=== PATIENT | male | born 1945 | race Two or more races ===

== ENCOUNTER 2018-08-11 18:34 | Inpatient (IN) ==
[2018-08-12] MEDS ORDERED: Bisacodyl 10 MG Supp RECTAL PRN (00:48)
[2018-08-12] MEDS ORDERED: Dextrose 50% in Water 50 ML Vial IV.PUSH PRN (00:50)
[2018-08-12] MEDS: Sod Chloride 0.9% Inj 1,000 ML IV.CONT SCH ×2 (01:42→19:29)
[2018-08-12 03:26] LABS: INR 1.2 Ratio; Prothrombin Time 12.3 sec (9.8-11.6)
--- NOTE | 2018-08-12 04:50 | P.HPIM ---
History of Present Illness Primary Care Physician: UNKNOWN History of Present Illness: 73-year-old male history of diabetes, hypertension. Austrian-speaking. Patient offered over the phone sign language interpreter and opts to use son at bedside. Patient presents to the ER with a 3-week history of progressively worsening dyspnea on exertion, fatigue, bilateral intermittent flank pain worse with movement as well as deep breathing. Slight amount of hemoptysis with specks of blood in cough productive of white sputum. Also reports 8 pound weight loss over the past 2 months and feeling cold without any fevers. Also reports constipation which has resolved. Review of Systems All other systems reviewed negative except as stated in HPI PMFSH - History History Provided By: Family Member - Medical History Medical History: Medical History (Last Updated 08/11/18 @ 19:07 by May Oro) Diabetes Glaucoma Hypertension - Surgical History Surgical History: Surgical History (Last Updated 08/11/18 @ 19:07 by May Oro) No history of previous surgery - Family History Family History: Family History (Last Updated 08/12/18 @ 04:47 by Alan Watkins MD) Mother Diabetes - Tobacco History Second Hand Smoke Exposure: No Tobacco Use In Past 30 Days: No Smoking Status: Former smoker Tobacco Type: Cigarettes - Alcohol History How Often Do You Have a Drink Containing Alcohol: Never - Substance Use History Substance History: No History of Abuse - Travel History Recent Travel in the [place] Within the Last 8 Weeks: No Recent Travel Out of the Country Within the Last 8 Weeks: No Medications and Allergies Active Medications: Active Medications Al Hydroxide/Mg Hydroxide (Milk Of Magnesia Liq) 30 ml PO Q12H PRN PRN Reason: Mild Constipation Bisacodyl (Dulcolax Supp) 10 mg RECTAL DAILY PRN PRN Reason: SEVERE CONSITIPATION Dextrose (D50w Vial) 50 ml IV.PUSH UNSCH PRN PRN Reason: PER HYPOGLYCEMIA PROTOCOL Glucagon (Glucagon Inj) 1 mg OTHER PRN PRN PRN Reason: for Hypoglycemia Protocol Sodium Chloride (Ns Inj) 1,000 mls @ 65 mls/hr IV.CONT .[id number] DOMENIC Last Admin: 08/12/18 01:42 Dose: 65 mls/hr Insulin Aspart (Novolog Insulin Correctional Sugar Inj) 0 unit SQ ACHS DOMENIC; Protocol Lactulose (Lactulose Liq) 30 ml PO DAILY PRN PRN Reason: SEVERE CONSITIPATION Sennosides (Senokot) 17.2 mg PO Q12H PRN PRN Reason: Moderate Constipation Allergies Allergy/AdvReac Type Severity Reaction Status Date / Time No Known Allergies Allergy Verified 08/11/18 18:52 Home Medications Medication Instructions Recorded Confirmed Type glipizide [Glucotrol] 5 mg PO BID 08/11/18 08/12/18 History lisinopril 2.5 mg PO DAILY 08/11/18 08/12/18 History Azopt 1 drop EACH EYE BID 08/12/18 08/12/18 History Lumigan 1 drop EACH EYE HS 08/12/18 08/12/18 History Exam Vital signs: Vital Signs 08/12/18 03:32 08/12/18 04:00 Temperature 98.0 F 98.5 F Pulse Rate 75 75 Respiratory Rate 21 17 Blood Pressure 164/81 H 129/69 Pulse Oximetry 99 98 Intake & Output 08/11/18 08/11/18 08/12/18 06:59 18:59 06:59 Weight 65.317 kg Other: Date of Last Bowel Movement 08/11/18 Weight On Admission 144 kg Caprini VTE Risk Assessment Caprini VTE Risk Assessment: Moderate/High Risk (score >= 2) Caprini Risk Assessment Model: Point Value = 1 Point Value = 2 Point Value = 3 Point Value = 5 Age 41-60 Minor surgery BMI > 25 kg/m2 Swollen legs Varicose veins or History of unexplained or recurrent spontaneous Oral contraceptives or hormone replacement Sepsis (< 1 month) Serious lung disease, including pneumonia (< 1 month) Abnormal pulmonary function Acute myocardial infarction Congestive heart failure (< 1 month) History of inflammatory bowel disease Medical patient at bed rest Age 61-74 Arthroscopic surgery Major open surgery (> 45 min) Laparoscopic surgery (> 45 min) Malignancy Confined to bed (> 72 hours) Immobilizing plaster cast Central venous access Age >= 75 History of VTE Family history of VTE Factor V Leiden Prothrombin [id number] Lupus anticoagulant Anticardiolipin antibodies Elevated serum homocysteine Heparin-induced thrombocytopenia Other congenital or acquired thrombophilia Stroke (< 1 month) Elective arthroplasty Hip, pelvis, or leg fracture Acute spinal cord injury (< 1 month) Prophylaxis Regimen: Total Risk Factor Score Risk Level Prophylaxis Regimen 0-1 Low Early ambulation 2 Moderate Order ONE of the following: *Sequential Compression Device (SCD) *Heparin 5000 units SQ BID 3-4 Higher Order ONE of the following medications: *Heparin 5000 units SQ TID *Enoxaparin/Lovenox 40 mg SQ daily (WT < 150 kg, CrCl > 30 mL/min) *Enoxaparin/Lovenox 30 mg SQ daily (WT < 150 kg, CrCl > 10-29 mL/min) *Enoxaparin/Lovenox 30 mg SQ BID (WT < 150 kg, CrCl > 30 mL/min) AND/OR *Sequential Compression Device (SCD) 5 or more Highest Order ONE of the following medications: *Heparin 5000 units SQ TID (Preferred with Epidurals) *Enoxaparin/Lovenox 40 mg SQ daily (WT < 150 kg, CrCl > 30 mL/min) *Enoxaparin/Lovenox 30 mg SQ daily (WT < 150 kg, CrCl > 10-29 mL/min) *Enoxaparin/Lovenox 30 mg SQ BID (WT < 150 kg, CrCl > 30 mL/min) AND *Sequential Compression Device (SCD) Assessment and Plan - Plan //Lung mass //Suspected lung cancer //Pathologic fracture of T8 vertebral body, T5 vertebral body = CT pulmonary angiogram negative for pulmonary embolism, however does show 3.4 x 2.2 cm spiculated lung mass anterior to the left hilum, with mildly enlarged left hilar lymph nodes and widespread bony metastatic disease, including questionable liver metastatic disease = Have consulted interventional radiology for biopsy of lung mass versus bony metastasis. Will consult oncology as well. //Hyponatremia. Sodium 128. Likely secondary to dehydration and poor appetite versus possibly secondary to lung cancer. Normal saline IV fluids. Monitor //Hypercalcemia. Calcium 10.3. Mild. IV fluids. Monitor //Hypertension. Blood pressure acceptable. Continue to monitor. Hold off on home meds for now. //Diabetes mellitus. Will check A1c. Insulin sliding scale for now. Discussed Condition With: Patient, nurse, ED physician, son at bedside H&P: Quality - VTE Deep Vein Thrombosis/Pulmonary Embolism Present on Admission: No
[2018-08-12 06:52] LABS: Calcium 9.9 mg/dL (8.5-10.1); Carbon Dioxide 28.9 meq/L (21.0-32.0); Potassium 3.9 meq/L (3.5-5.1)
[2018-08-12] MEDS: Insulin NovoLOG Aspart Correctional Sugar Inj SQ SCH ×4 (09:46→22:49)
[2018-08-12] MEDS ORDERED: fentaNYL Citrate Inj 250 MCG/5 ML Ampul ONE (11:19)
--- NOTE | 2018-08-12 11:59 | P.RAD ---
Post Procedure Progress Note - Pre Procedure Diagnosis (1) Lung mass (2) Bone metastases - Post Procedure Diagnosis (1) Bone metastases (2) Lung mass - Procedure Information Procedure Date: 08/12/18 Supervising Radiologist: Neil Matos MD Estimated blood loss (mL): 0 Anesthesia: Local, Conscious Sedation - Plan of Activity Patient to Unit: [facility] Patient Condition: Good Additional Comments: Successful Ct guided biopsy of a distructive lesion in the t10 transverse process full dictated report to follow See PACS Report for procedural detail/treatment.
--- NOTE | 2018-08-12 15:53 | CT ---
EXAM DATE: 08/12/2018 12:20 PM EDT AGE/SEX: 73 years / Male INDICATIONS: T10 bone lesion. CLINICAL DATA: This is the patient's initial encounter. Patient reports that signs and symptoms have been present for 1 day and indicates a pain score of 4/10. MEDICAL/SURGICAL HISTORY: Diabetes. Hypertension. None. COMPARISON: No prior exams available for comparison. BIOPSY SITE: Right . T10 transverse process MEDICATION(S): 2mg midazolam (Versed) IV 100mcg fentanyl (Sublimaze) IV DEVICE(S): 18 gauge BARD biopsy needle Two core specimen(s) sent to the laboratory for pathologic evaluation. . . PROCEDURE: CT guided Right . T10 transverse process biopsy Conscious sedation with continuous EKG and oximetry monitoring. EKG and oximetry remained stable throughout the procedure. The patient's CT scan of the thorax was reviewed prior to the procedure. The patient's lung mass is a gain noted in addition, multiple destructive lesions are seen within the osseous structures. There wa s near complete destruction of the transverse process of T10 on the right. Decision was made to biops y this. Prior to the procedure informed consent was obtained. Any appropriate prior imaging studies were rev iewed. Using automated exposure control and adjustment of the mA and/or kV according to patient size, radiat ion dose was kept as low as reasonably achievable to obtain optimal diagnostic quality images. DICOM format image data is available electronically for review and comparison. The site was prepped in a sterile fashion. Full sterile technique was used, including cap, mask, shola rile gloves and gown and a large sterile sheet. Hand hygiene and 2% chlorhexidine and/or betadine/al cohol prep was utilized per protocol for cutaneous antisepsis. The skin and subcutaneous tissues wer e infiltrated with local anesthetic solution. With CT guidance the previously identified target was localized. Biopsy was performed using the presc ribed needle as above. Adequate hemostasis was obtained with compression at the puncture site. Follow-up CT scan reveals no hemorrhage. The patient tolerated the procedure well and there were no complications. The patient was returned to the Radiology Outpatient Unit in stable condition. FINDINGS: 2 core biopsies of the T10 transverse process were completed without difficulty. 18-gauge core sample s were obtained. CONCLUSION: 1. Uncomplicated CT guided biopsy. Electronically signed by: Neil Matos MD 08/12/2018 3:52 PM EDT
[2018-08-12 17:00] LABS: Hemoglobin A1c 6.6 % (4.3-6.0)
[2018-08-12] MEDS ORDERED: Pamidronate Inj 60 MG in Sodium Chlor 0.9% Inj 500 ML IV.SIG ONE (17:00)
--- NOTE | 2018-08-12 18:00 | MH ---
cc: Oni Simons MD DATE OF ADMISSION: 08/12/2018 REASON FOR CONSULTATION: Evaluation of newly diagnosed lung cancer. HISTORY OF PRESENT ILLNESS: A 73-year-old gentleman, Malay speaking; poor historian, difficulty in obtaining history, but I spoke to the patient's son over the phone, who told me that he has been having low back pain for the last 2 months and gradually increasing over the last 3-1/2 weeks and hence went to the emergency room and [facility] where he was evaluated with a CT scan of the chest that showed a lung mass and hence he was transported here and admitted through the emergency room. I was asked to evaluate him for possible newly diagnosed lung cancer. He has already had a CT-guided biopsy of the T10 vertebral body mass. The patient is unable to give any further history other than that. Denies any incontinence, urgency or frequency and complains of back pain, specifically in the upper back. His son told me that he lost about 5 or 10 pounds in the last 1-2 months. REVIEW OF SYSTEMS: No headaches, motor or sensory symptoms. No fevers, or night sweats. He has chronic cough with whitish sputum. No hemoptysis. No abdominal pain, distention, blood in stool or black stools. No frequency, urgency or hematuria. PAST MEDICAL HISTORY: Diabetes, hypertension and glaucoma. SURGICAL HISTORY: No prior surgeries. MEDICATIONS: He was on Milk of Magnesia, bisacodyl, insulin, lactulose in the hospital. FAMILY HISTORY: Noncontributory. SOCIAL HISTORY: Ex-smoker, non-alcohol abuser. WORK HISTORY: Not available. PHYSICAL EXAMINATION: GENERAL: Middle-aged gentleman, appearing older and chronically ill looking with evidence of recent weight loss. HEENT: Pallor present. No icterus. No palpable adenopathy in the neck or axilla. Dry mucous membranes without oropharyngeal lesions, no gum bleeding or hypertrophy. MUSCULOSKELETAL: Spinal tenderness noted in the mid to lower thoracic spine and a biopsy site also tender. Moving all 4 extremities. RECTAL: Deferred. NEUROLOGICAL: Alert and oriented x4. CARDIOVASCULAR: S1, S2, regular rate and rhythm. LUNGS: Bilaterally clear without crackles or wheeze. ABDOMEN: Soft, without palpable hepatosplenomegaly. No tenderness or guarding. No free fluid clinically. EXTREMITIES: No edema or evidence of DVTs. IMAGING: No CT scan is available in this hospital, but CT pulmonary angiogram At [facility] showed no pulmonary embolism and 3.4 cm x 2.2 cm spiculated lung mass anterior to the left hilum per report with mildly enlarged left hilar lymph nodes and widespread bony metastatic disease including questionable liver metastasis. This is per report from [facility] in the EMR here at [facility]. IMPRESSION: A 73-year-old gentleman with newly diagnosed lung cancer with spinal metastasis which he is symptomatic from. We need to rule out spinal cord compression and so I ordered an urgent MRI of the thoracic and lumbar spine and also started him on Aredia and pain medication. We also requested a radiation oncology consultation for palliative radiation to the spine and await the pathology from the T10 bone biopsy that was performed this afternoon in order to make decisions regarding systemic therapy. This was discussed with the patient's son over the phone, and I will followup in the hospital. Please do not hesitate to contact me if there are any further questions. MD ALISSA Srinivasan/huma , 04:59 PM , 05:09 PM
[2018-08-12] MEDS ORDERED: Gadobutrol PF 7.5 MMOL/7.5 ML Vial (for RAD) IV.SIG ONE ×2 (19:24→19:33)
--- NOTE | 2018-08-12 19:30 | MR ---
EXAM DATE: 08/12/2018 7:12 PM EDT AGE/SEX: 73 years / Male INDICATIONS: Pain. Metastatic disease. CLINICAL DATA: This is the patient's initial encounter. Patient reports that signs and symptoms have been present for 2 days and indicates a pain score of 3/10. MEDICAL/SURGICAL HISTORY: Diabetes mellitus type II. Hypertension. . Sinus. Vasectomy. COMPARISON: No prior exams available for comparison. TECHNIQUE: Multiplanar, multisequence MRI of the thoracic spine was performed without and with 7 ml Gadavist (gadobutrol) contrast as a single exam dose. FINDINGS: VERTEBRAE: Abnormal. Widespread diffuse abnormal signal and enhancement throughout the visualized th oracic spine as well as the visualized lower cervical and upper lumbar spine consistent with widespre ad diffuse osseous metastatic disease. Mild inferior endplate from T8 reflects a Schmorl's node. Ther e is complete replacement of T5 and T8 vertebral bodies with eccentric narrowing of the posterior T5 vertebral body on the right. This effaces the central canal anteriorly and deforms the cord. There is no definitive evidence for extension of tumor into the epidural space at this time. Otherwise, verte bral body heights are maintained. There is no disparate STIR signal to suggest pathologic fracture at this time. Abnormal signal enhancement is seen throughout the posterior elements most notably at T2 involving both lamina and a spinous process. There is involvement of the transverse processes and ped icles at multiple levels without definitive evidence for involvement of the neural foramina. There is also osseous metastatic disease involving multiple ribs central canal stenosis appears patent with n ormal cord signal. CONCLUSION: 1. Widespread diffuse osseous metastatic disease involving the thoracic spine with near complete rep lacement of T5 and T8 vertebral bodies and involvement of the posterior processes at numerous levels. 2. There is eccentric bulging of the right T5 posterior cortex with effacement of the anterior theca l sac and flattening of the thoracic cord at this level. 3. Otherwise, no pathologic fracture at this time. Electronically signed by: Miki Emery MD 08/12/2018 7:29 PM EDT
--- NOTE | 2018-08-12 19:44 | MR ---
EXAM DATE: 08/12/2018 7:23 PM EDT AGE/SEX: 73 years / Male INDICATIONS: Pain. Metastatic disease. CLINICAL DATA: This is the patient's initial encounter. Patient reports that signs and symptoms have been present for 2 days and indicates a pain score of 3/10. MEDICAL/SURGICAL HISTORY: Diabetes mellitus type II. Hypertension. . Sinus. Vasectomy. COMPARISON: No prior exams available for comparison. TECHNIQUE: Multiplanar, multisequence MRI examination of the lumbar spine was performed without and with 7 ml Gadavist (gadobutrol) contrast as a single exam dose. FINDINGS: Diffusely abnormal signal throughout the lumbar spine with associated diffuse abnormal enhancement co nsistent with diffuse osseous metastatic disease. There is near complete replacement of the L2 and L5 vertebral bodies. There is posterior process involvement at multiple levels as well as involvement t hroughout the sacrum. There is no disparate STIR signal to suggest pathologic fracture. There is para spinal extension of tumor on the left at L3 which does not appear to extend to the neural foramen. Th ere is paraspinal extension of tumor on the left at L5 extending from the pedicle to the neural heath cabrera with abnormal enhancement noted in the neural foramina. Is also abnormal enhancement of the exiti ng left L5 nerve root. Otherwise, no definitive evidence for epidural tumor extension. There is brianda l cord signal with conus terminating at T12-L1. Central canal is patent. Multilevel degenerative spon dylosis of the lower lumbar spine with mild diffuse disc bulges at L3-4, L4-5 and L5-S1. No significa nt resultant neural foraminal or central canal stenosis. CONCLUSION: 1. Findings consistent with diffuse osseous metastatic disease throughout the lumbar spine with invo lvement of the posterior processes at multiple levels. 2. There is paraspinal extension of tumor on the left at L5 which appears to extend to the neural fo ramina with abnormal enhancement of the left L5 nerve root. 3. Otherwise, no evidence for pathologic fracture or epidural tumor extension. Electronically signed by: Miki Emery MD 08/12/2018 7:43 PM EDT
[2018-08-12 20:14] LABS: Calcium 10.4 mg/dL (8.5-10.1)
[2018-08-12 20:20] LABS: Albumin 3.5 g/dL (3.4-5.0)
[2018-08-12 20:22] LABS: Total Protein 7.5 g/dL (6.4-8.2)
--- NOTE | 2018-08-12 22:26 | MB ---
cc: eCsia Huertas MD DATE: 08/12/2018 REASON FOR CONSULTATION: Lung nodule. HISTORY OF PRESENT ILLNESS: This is a 73-year-old male who has a history of diabetes, hypertension and a history of chronic lung disease, who was admitted with shortness of breath, fatigue and pain on taking deep breaths. The patient also had mild hemoptysis and has had significant weight loss over the past 2 months. Upon arrival in the ER, a CT of the chest was obtained. The CTA done on 08/11/2018 was reported as having a 3.4 cm spiculated lung mass in the left hilar area with enlarged left hilar lymph nodes, widespread bony metastatic disease and a pathologic fracture of the T8 vertebral body. There was no pulmonary embolus. There were coronary artery calcifications noted. The patient was then sent for a bone biopsy of the spine, which he has completed. He is presently having some pain on taking deep breaths and some back pain as well. His hemoptysis has subsided. PAST MEDICAL HISTORY: Includes a history of diabetes and hypertension, history of glaucoma. PAST SURGICAL HISTORY: No previous surgery. HABITS: The patient is a smoker if up to 1 pack per day for over 40 years. Alcohol use, occasional. ALLERGIES: NO DRUG ALLERGIES ARE LISTED. FAMILY HISTORY: Significant for diabetes in his mother. REVIEW OF SYSTEMS: The patient is hard to communicate with. He does have some shortness of breath, pain in the back. He has no leg swelling or calf muscle pain. No urinary or GI symptoms. Denies headaches or blackout spells. Denies skin rash. PHYSICAL EXAMINATION: GENERAL: This is an elderly man who is alert, pale, in no acute distress. VITAL SIGNS: Blood pressure 130/70, pulse 70, respirations 16, temperature 97.8. HEENT: Head is normocephalic. Pupils are reactive. Tongue is moist. Nasal mucosa edematous. Throat is clear. NECK: Supple with no bruits, thyroid enlargement or lymphadenopathy. CHEST: Decreased breath sounds at the bases with occasional wheezes bilaterally and prolonged expirations. HEART: Irregular S1 and S2 with no murmur and no S3. ABDOMEN: Soft, protuberant without masses. No organomegaly or tenderness. Bowel sounds are active. EXTREMITIES: No lesions. No calf tenderness. NEUROLOGIC: Reflexes are 1+ with no gross motor deficits. SKIN: No lesions observed. IMPRESSION: 1. Left lung mass, probable malignancy. 2. Metastatic bony lesion, possible metastatic carcinoma of the lung. 3. Chronic obstructive pulmonary disease. 4. Diabetes mellitus. 5. Hypertension. PLAN: The patient had a bone biopsy done, the results of which are pending. We will place him on DuoNeb solution with a nebulizer q.i.d. We will get him scheduled for a bronchoscopy to evaluate the left hilar region. Bone biopsy results are pending and the patient will submit a sputum for culture and Gram stain. I also placed him on Zithromax 500 mg daily to treat any underlying bronchitis. A PFT will be done at the bedside and a blood gas study on room air and oxygen supplementation added at 2 liters nasal cannula if he is hypoxic. Thank you, Dr. Watkins for this consultation. V. Dhaval Huertas MD VJD/mik , 08:16 PM , 08:28 PM
--- NOTE | 2018-08-13 07:47 | P.DCO ---
- Diagnosis (1) Lung mass Status: Acute (2) Bone metastases Status: Acute - Physical Therapy Order: Evaluate and treat, Improve ambulation, Strength and gait training - Home Health Nursing Order: Medical education, Signs/symptoms of disease process, Nursing assessment with vital signs - Case Management Consult Yes - Certification I have seen patient Rakesh Kim on 08/13/18. My clinical findings support the need for the requested home health care services because: Limited mobility due to disease progression, Deconditioned with increased weakness, Limited ability to care for self, High risk of falls I certify that my clinical findings support that this patient is homebound because: Unsteady gait/balance, Unsafe to leave home unassisted, Unable to use public transportation
--- NOTE | 2018-08-13 08:15 | P.PN ---
Subjective Interval history: Follow-up for lung cancer with bony metastasis. The patient is seen with his son at bedside who provided translation per the request of the patient. Patient reports his breathing has improved, denies any significant shortness of breath, does have an occasional nonproductive cough, denies hemoptysis. Denies any chest pain. He reports a lot of pain around his lower back and left hip, requesting pain medication. He states he has had difficulty ambulating due to this pain. He did eat well last night. Denies any other medical complaints at this time. Physical Exam Vital signs: Vital Signs 08/12/18 08:15 08/12/18 12:15 08/12/18 12:30 Temperature 98.0 F 98.5 F Pulse Rate 81 75 72 Respiratory Rate 16 18 18 Blood Pressure 148/79 H 107/62 110/60 Pulse Oximetry 97 08/12/18 13:20 08/12/18 15:58 08/12/18 20:43 Temperature 98.2 F 98.5 F Pulse Rate 68 86 91 H Respiratory Rate 20 16 18 Blood Pressure 121/70 136/67 131/74 Pulse Oximetry 93 L 97 97 08/12/18 23:34 08/13/18 01:04 08/13/18 04:00 Temperature 98.1 F 97.6 F Pulse Rate 84 78 82 Respiratory Rate 18 20 18 Blood Pressure 131/71 126/71 Pulse Oximetry 96 97 97 08/13/18 07:41 Temperature Pulse Rate 84 Respiratory Rate 17 Blood Pressure Pulse Oximetry 97 Intake & Output 08/12/18 08/13/18 08/13/18 18:59 06:59 18:59 Intake Total 520 / 520 Balance 520 / 520 Intake: IV 520 / 520 NS Inj 1,000 ML @ 65 mls/hr IV. 0 / 0 CONT .[id number] [facility] Rx#:[id number] Aredia Inj 60 MG In NS Inj 500 520 / 520 ML @ 130 mls/hr IV.SIG ONCE ONE Rx#:[id number] Other: Date of Last Bowel Movement 08/11/18 Narrative: GENERAL: Well-nourished, well-developed elderly male patient in [facility]. SKIN: Warm and dry. No rash. HEENT: Normocephalic. Atraumatic. Pupils equal and round. Mucous membranes pink and moist. CARDIOVASCULAR: Regular rate and rhythm. No murmur appreciated. RESPIRATORY: No accessory muscle use. Clear to auscultation. Breath sounds equal bilaterally. GASTROINTESTINAL: Abdomen soft, non-tender, nondistended. Normoactive bowel sounds x4. MUSCULOSKELETAL: No obvious deformities. Extremities without clubbing, cyanosis , or edema. Tender to palpation at left lateral hip and left lumbar spine. NEUROLOGICAL: Awake and alert. No obvious cranial nerve deficits. Motor grossly within normal limits. Moving all extremities spontaneously. Normal speech. PSYCHIATRIC: Appropriate mood and affect; insight and judgment normal. Results - Labs CBC & Chem 7: 08/12/18 05:45 Laboratory Results - last 24 hr 08/12/18 08/12/18 08/12/18 05:45 08:28 17:31 POC Glucose 143 H Hemoglobin A1c 6.6 H Calcium 10.4 H Total Bilirubin 0.6 Direct Bilirubin 0.2 Indirect Bilirubin 0.4 AST 38 H ALT 18 Alkaline Phosphatase 141 H Total Protein 7.5 Albumin 3.5 08/12/18 08/12/18 08/13/18 18:02 21:55 07:49 POC Glucose 220 H 188 H 130 H Hemoglobin A1c Calcium Total Bilirubin Direct Bilirubin Indirect Bilirubin AST ALT Alkaline Phosphatase Total Protein Albumin - Imaging Impressions Bone Biopsy CT 08/12/18 00:00 CONCLUSION: 1. Uncomplicated CT guided biopsy. Thoracic Spine MRI 08/12/18 00:00 CONCLUSION: 1. Widespread diffuse osseous metastatic disease involving the thoracic spine with near complete replacement of T5 and T8 vertebral bodies and involvement of the posterior processes at numerous levels. 2. There is eccentric bulging of the right T5 posterior cortex with effacement of the anterior thecal sac and flattening of the thoracic cord at this level. 3. Otherwise, no pathologic fracture at this time. Lumbar Spine MRI 08/12/18 16:43 CONCLUSION: 1. Findings consistent with diffuse osseous metastatic disease throughout the lumbar spine with involvement of the posterior processes at multiple levels. 2. There is paraspinal extension of tumor on the left at L5 which appears to extend to the neural foramina with abnormal enhancement of the left L5 nerve root. 3. Otherwise, no evidence for pathologic fracture or epidural tumor extension. - Procedures 08/12/18 - Ct guided biopsy of a destructive lesion in the t10 transverse process by CARMELINA Matos Assessment and Plan - Assessment (1) Lung mass Code(s): R91.8 - Other nonspecific abnormal finding of lung field Status: Acute (2) Bone metastases Code(s): C79.51 - Secondary malignant neoplasm of bone Status: Acute - Plan 73-year-old male with history of hypertension, diabetes mellitus, presented to [facility] ED with low back pain, rib pain, shortness of breath, and occasional hemoptysis. Lung mass with bony spinal metastasis: Acute, found during this admission. Suspect lung cancer. -CT pulmonary angiogram negative for PE, however does show 3.4 x 2.2 cm spiculated lung mass anterior to the left hilum, with mildly enlarged left hilar lymph nodes and widespread bony metastatic disease, including questionable liver metastatic disease -Thoracic spine MRI shows Widespread diffuse osseous metastatic disease involving the thoracic spine with near complete replacement of T5 and T8 vertebral bodies and involvement of the posterior processes at numerous levels; There is eccentric bulging of the right T5 posterior cortex with effacement of the anterior thecal sac and flattening of the thoracic cord at this level. -Lumbar spine MRI shows Findings consistent with diffuse osseous metastatic disease throughout the lumbar spine with involvement of the posterior processes at multiple levels; There is paraspinal extension of tumor on the left at L5 which appears to extend to the neural foramina with abnormal enhancement of the left L5 nerve root. -IR consulted 08/12 s/p CT guided biopsy of a destructive lesion in the t10 transverse process -Pathology pending -Consult oncology and radiation oncology, appreciate assistance -Consult pulmonology, appreciate assistance -Pain control with tylenol, [place] prn, and IV morphine prn breakthrough pain -Consult PT, recommending HHC, case management consulted Hyponatremia: acute. Sodium 128. Likely secondary to dehydration and poor appetite versus possibly secondary to lung cancer. -Continue Normal saline IV fluids. -Monitor, repeat labs pending Hypercalcemia: Calcium 10.3. Mild. -Continue IV fluids. -Monitor, repeat labs pending Hypertension: chronic. Blood pressure acceptable. -Continue to monitor. -Hold off on home meds for now. Diabetes mellitus: chronic. HgbA1c 6.6 -Monitor Accu-checks and cover with SSI DVT Prophylaxis: teds/SCDs; avoid chemical prophylaxis with biopsy Discharge Planning: Await radiation oncology recommendations. Will need clearance from oncology. PT recommending [facility] and ricky, case management consulted.
[2018-08-13] MEDS ORDERED: Acetaminophen 325 MG Tablet PO PRN (08:16)
[2018-08-13] MEDS ORDERED: Morphine Sulfate Inj 2 MG/ML Vial IV.PUSH PRN (08:17)
[2018-08-13] MEDS ORDERED: Morphine Sulfate Inj 2 MG/ML Vial IV.PUSH ONE (08:30)
[2018-08-13 09:14] LABS: Baso % (Auto) 0.4 % (0.0-2.0); Eos # (Auto) 0.1 th/mm3 (0.0-0.4); Hematocrit 34.8 % (39.0-51.0); Hemoglobin 12.1 gm/dL (13.0-17.0); Lymph # (Auto) 0.8 th/mm3 (1.0-4.8); Lymph % (Auto) 13.7 % (9.0-44.0); Mean Corpuscular HGB Conc 34.9 % (32.0-36.0); Mean Corpuscular Hemoglobin 31.9 pg (27.0-34.0); Mean Corpuscular Volume 91.6 fL (80.0-100.0); Mean Platelet Volume 7.2 fL (7.0-11.0); Mono # (Auto) 0.4 th/mm3 (0.0-0.9); Mono % (Auto) 7.8 % (0.0-8.0); Neut # (Auto) 4.4 th/mm3 (1.8-7.7); Neut % (Auto) 77.1 % (16.0-70.0); Platelet Count 187 th/mm3 (150-450); Red Cell Distribution Width 13.6 % (11.6-17.2); White Blood Count 5.7 th/mm3 (4.0-11.0)
[2018-08-13 09:31] LABS: Albumin 3.2 g/dL (3.4-5.0); Anion Gap 7 meq/L (5-15); Aspartate Aminotransferase 27 U/L (15-37); Blood Urea Nitrogen 19 mg/dL (7-18); Calcium 10.3 mg/dL (8.5-10.1); Carbon Dioxide 27.1 meq/L (21.0-32.0); Chloride 99 meq/L (98-107); Glomerular Filtration Rate 58 mL/min (>89); Glucose,Random 140 mg/dL (74-106); Sodium 133 meq/L (136-145)
[2018-08-13 09:32] LABS: Alanine Aminotransferase 14 U/L (12-78)
[2018-08-13 09:35] LABS: Alkaline Phosphatase 121 U/L (45-117); Total Protein 6.7 g/dL (6.4-8.2)
[2018-08-13] MEDS: Insulin NovoLOG Aspart Correctional Sugar Inj SQ SCH ×4 (11:07→22:29)
[2018-08-13] MEDS ORDERED: RESP: Albuterol Concentrated 2.5 MG/0.5 ML Neb NEB SCH (11:15)
--- NOTE | 2018-08-13 11:21 | P.PN ---
Subjective Interval history: He has pain in the lower back. No hemoptysis. Off O2 Biopsy path pending. Physical Exam Vital signs: Vital Signs 08/12/18 12:15 08/12/18 12:30 08/12/18 13:20 Temperature 98.5 F Pulse Rate 75 72 68 Respiratory Rate 18 18 20 Blood Pressure 107/62 110/60 121/70 Pulse Oximetry 93 L 08/12/18 15:58 08/12/18 20:43 08/12/18 23:34 Temperature 98.2 F 98.5 F 98.1 F Pulse Rate 86 91 H 84 Respiratory Rate 16 18 18 Blood Pressure 136/67 131/74 131/71 Pulse Oximetry 97 97 96 08/13/18 01:04 08/13/18 04:00 08/13/18 07:41 Temperature 97.6 F Pulse Rate 78 82 84 Respiratory Rate 20 18 17 Blood Pressure 126/71 Pulse Oximetry 97 97 97 08/13/18 08:00 Temperature 98.5 F Pulse Rate 95 H Respiratory Rate 16 Blood Pressure 152/72 H Pulse Oximetry 94 L Intake & Output 08/12/18 08/13/18 08/13/18 18:59 06:59 18:59 Intake Total 520 / 520 240 / 240 Balance 520 / 520 240 / 240 Intake: IV 520 / 520 NS Inj 1,000 ML @ 65 mls/hr IV. 0 / 0 CONT .[id number] [facility] Rx#:[id number] Aredia Inj 60 MG In NS Inj 500 520 / 520 ML @ 130 mls/hr IV.SIG ONCE ONE Rx#:[id number] Oral 240 / 240 Other: Date of Last Bowel Movement 08/11/18 Narrative: GENERAL: Well-nourished, well-developed elderly male patient in [facility]. SKIN: Warm and dry. No rash. HEENT: Normocephalic. Atraumatic. Pupils equal and round. Mucous membranes pink and moist. CARDIOVASCULAR: Regular rate and rhythm. No murmur appreciated. RESPIRATORY: No accessory muscle use. occ wheeze . Breath sounds equal bilaterally. GASTROINTESTINAL: Abdomen soft, non-tender, nondistended. Normoactive bowel sounds x4. MUSCULOSKELETAL: No obvious deformities. Extremities without clubbing, cyanosis , or edema. Tender to palpation at left lateral hip and left lumbar spine. NEUROLOGICAL: Awake and alert. No obvious cranial nerve deficits. Motor grossly within normal limits. Moving all extremities spontaneously. Normal speech. PSYCHIATRIC: Appropriate mood and affect; insight and judgment normal. Results - Labs CBC & Chem 7: 08/13/18 08:25 08/13/18 08:25 Laboratory Results - last 24 hr 08/12/18 08/12/18 08/12/18 05:45 17:31 18:02 WBC RBC Hgb Hct MCV MCH MCHC RDW Plt Count MPV Neut % (Auto) Lymph % (Auto) [place] % (Auto) Eos % (Auto) Baso % (Auto) Neut # (Auto) Lymph # (Auto) [place] # (Auto) Eos # (Auto) Baso # (Auto) WBC Differential Differential Comment Sodium Potassium Chloride Carbon Dioxide Anion Gap BUN Creatinine Estimated GFR POC Glucose 220 H Random Glucose Hemoglobin A1c 6.6 H Calcium 10.4 H Total Bilirubin 0.6 Direct Bilirubin 0.2 Indirect Bilirubin 0.4 AST 38 H ALT 18 Alkaline Phosphatase 141 H Total Protein 7.5 Albumin 3.5 08/12/18 08/13/18 08/13/18 21:55 07:49 08:25 WBC 5.7 RBC 3.80 L Hgb 12.1 L Hct 34.8 L MCV 91.6 MCH 31.9 MCHC 34.9 RDW 13.6 Plt Count 187 MPV 7.2 Neut % (Auto) 77.1 H Lymph % (Auto) 13.7 [place] % (Auto) 7.8 Eos % (Auto) 1.0 Baso % (Auto) 0.4 Neut # (Auto) 4.4 Lymph # (Auto) 0.8 L [place] # (Auto) 0.4 Eos # (Auto) 0.1 Baso # (Auto) 0.0 WBC Differential . Differential Comment Auto diff final Sodium Potassium Chloride Carbon Dioxide Anion Gap BUN Creatinine Estimated GFR POC Glucose 188 H 130 H Random Glucose Hemoglobin A1c Calcium Total Bilirubin Direct Bilirubin Indirect Bilirubin AST ALT Alkaline Phosphatase Total Protein Albumin 08/13/18 08:25 WBC RBC Hgb Hct MCV MCH MCHC RDW Plt Count MPV Neut % (Auto) Lymph % (Auto) [place] % (Auto) Eos % (Auto) Baso % (Auto) Neut # (Auto) Lymph # (Auto) [place] # (Auto) Eos # (Auto) Baso # (Auto) WBC Differential Differential Comment Sodium 133 L Potassium 4.0 Chloride 99 Carbon Dioxide 27.1 Anion Gap 7 BUN 19 H Creatinine 1.23 Estimated GFR 58 L POC Glucose Random Glucose 140 H Hemoglobin A1c Calcium 10.3 H Total Bilirubin 0.6 Direct Bilirubin Indirect Bilirubin AST 27 ALT 14 Alkaline Phosphatase 121 H Total Protein 6.7 D Albumin 3.2 L - Imaging Impressions Bone Biopsy CT 08/12/18 00:00 CONCLUSION: 1. Uncomplicated CT guided biopsy. Thoracic Spine MRI 08/12/18 00:00 CONCLUSION: 1. Widespread diffuse osseous metastatic disease involving the thoracic spine with near complete replacement of T5 and T8 vertebral bodies and involvement of the posterior processes at numerous levels. 2. There is eccentric bulging of the right T5 posterior cortex with effacement of the anterior thecal sac and flattening of the thoracic cord at this level. 3. Otherwise, no pathologic fracture at this time. Lumbar Spine MRI 08/12/18 16:43 CONCLUSION: 1. Findings consistent with diffuse osseous metastatic disease throughout the lumbar spine with involvement of the posterior processes at multiple levels. 2. There is paraspinal extension of tumor on the left at L5 which appears to extend to the neural foramina with abnormal enhancement of the left L5 nerve root. 3. Otherwise, no evidence for pathologic fracture or epidural tumor extension. - Procedures 08/12/18 - Ct guided biopsy of a destructive lesion in the t10 transverse process by IR Dr. Matos Assessment and Plan - Assessment (1) COPD (chronic obstructive pulmonary disease) Code(s): J44.9 - Chronic obstructive pulmonary disease, unspecified Status: Acute (2) Hypertension Code(s): I10 - Essential (primary) hypertension Status: Acute (3) Lung mass Code(s): R91.8 - Other nonspecific abnormal finding of lung field Status: Acute (4) Bone metastases Code(s): C79.51 - Secondary malignant neoplasm of bone Status: Acute - Plan 1. Will plan bronchoscopy and biopsy.D/W son and risks incl Bleeding, Pneumothorax and respiratory failure. 2. Duoneb nebs qid. 3. O2 2 l PRN 4. Coag profile 5. Pain control with morphine for back pain.
[2018-08-13] MEDS: Sod Chloride 0.9% Inj 1,000 ML IV.CONT SCH (12:07)
[2018-08-13] MEDS: Azithromycin 250 MG Tablet PO SCH (12:08)
[2018-08-13] MEDS: Sodium Chloride 0.45 % Inj 1,000 ML IV.CONT SCH (12:09)
--- NOTE | 2018-08-13 17:02 | P.PNONC ---
Subjective Interval history: T-max 100.6 F. Patient is sitting on side of bed, grimacing in pain. His is at the bedside. Offered formal translation services, his declines and because they are his son and puts him on speaker phone. She prefers that I speak with her son. Patient complains of 10/10 lower back pain and also points to his lateral rib area, unrelieved with current pain medications. He denies any nausea. Ship Purser plans for bronchoscopy with biopsy tomorrow. Patient awaiting transfer to the oncology floor. Objective Vital Signs/Intake & Output: Vital Signs 08/12/18 20:43 08/12/18 23:34 08/13/18 01:04 Temperature 98.5 F 98.1 F Pulse Rate 91 H 84 78 Respiratory Rate 18 18 20 Blood Pressure 131/74 131/71 Pulse Oximetry 97 96 97 08/13/18 04:00 08/13/18 07:41 08/13/18 08:00 Temperature 97.6 F 98.5 F Pulse Rate 82 84 95 H Respiratory Rate 18 17 16 Blood Pressure 126/71 152/72 H Pulse Oximetry 97 97 94 L 08/13/18 12:00 08/13/18 13:18 08/13/18 16:17 Temperature 98.7 F 100.6 F H Pulse Rate 86 85 108 H Respiratory Rate 16 17 18 Blood Pressure 140/75 149/86 H Pulse Oximetry 93 L 95 Intake & Output 08/12/18 08/13/18 08/13/18 18:59 06:59 18:59 Intake Total 520 / 520 1480 / 1480 Balance 520 / 520 1480 / 1480 Intake: IV 520 / 520 1000 / 1000 NS Inj 1,000 ML @ 65 mls/hr IV. 0 / 0 1000 / 1000 CONT .[id number] [facility] Rx#:[id number] Aredia Inj 60 MG In NS Inj 500 520 / 520 ML @ 130 mls/hr IV.SIG ONCE ONE Rx#:[id number] Oral 480 / 480 Other: Date of Last Bowel Movement 08/11/18 Result Diagrams: 08/13/18 08:25 08/13/18 08:25 Laboratory Results: Laboratory Results - last 24 hr 08/12/18 08/12/18 08/12/18 05:45 17:31 18:02 WBC RBC Hgb Hct MCV MCH MCHC RDW Plt Count MPV Neut % (Auto) Lymph % (Auto) [place] % (Auto) Eos % (Auto) Baso % (Auto) Neut # (Auto) Lymph # (Auto) [place] # (Auto) Eos # (Auto) Baso # (Auto) WBC Differential Differential Comment Sodium Potassium Chloride Carbon Dioxide Anion Gap BUN Creatinine Estimated GFR POC Glucose 220 H Random Glucose Hemoglobin A1c 6.6 H Calcium 10.4 H Total Bilirubin 0.6 Direct Bilirubin 0.2 Indirect Bilirubin 0.4 AST 38 H ALT 18 Alkaline Phosphatase 141 H Total Protein 7.5 Albumin 3.5 08/12/18 08/13/18 08/13/18 21:55 07:49 08:25 WBC 5.7 RBC 3.80 L Hgb 12.1 L Hct 34.8 L MCV 91.6 MCH 31.9 MCHC 34.9 RDW 13.6 Plt Count 187 MPV 7.2 Neut % (Auto) 77.1 H Lymph % (Auto) 13.7 [place] % (Auto) 7.8 Eos % (Auto) 1.0 Baso % (Auto) 0.4 Neut # (Auto) 4.4 Lymph # (Auto) 0.8 L [place] # (Auto) 0.4 Eos # (Auto) 0.1 Baso # (Auto) 0.0 WBC Differential . Differential Comment Auto diff final Sodium Potassium Chloride Carbon Dioxide Anion Gap BUN Creatinine Estimated GFR POC Glucose 188 H 130 H Random Glucose Hemoglobin A1c Calcium Total Bilirubin Direct Bilirubin Indirect Bilirubin AST ALT Alkaline Phosphatase Total Protein Albumin 08/13/18 08/13/18 08:25 13:26 WBC RBC Hgb Hct MCV MCH MCHC RDW Plt Count MPV Neut % (Auto) Lymph % (Auto) [place] % (Auto) Eos % (Auto) Baso % (Auto) Neut # (Auto) Lymph # (Auto) [place] # (Auto) Eos # (Auto) Baso # (Auto) WBC Differential Differential Comment Sodium 133 L Potassium 4.0 Chloride 99 Carbon Dioxide 27.1 Anion Gap 7 BUN 19 H Creatinine 1.23 Estimated GFR 58 L POC Glucose 243 H Random Glucose 140 H Hemoglobin A1c Calcium 10.3 H Total Bilirubin 0.6 Direct Bilirubin Indirect Bilirubin AST 27 ALT 14 Alkaline Phosphatase 121 H Total Protein 6.7 D Albumin 3.2 L Imaging Studies: Impressions Thoracic Spine MRI 08/12/18 00:00 CONCLUSION: 1. Widespread diffuse osseous metastatic disease involving the thoracic spine with near complete replacement of T5 and T8 vertebral bodies and involvement of the posterior processes at numerous levels. 2. There is eccentric bulging of the right T5 posterior cortex with effacement of the anterior thecal sac and flattening of the thoracic cord at this level. 3. Otherwise, no pathologic fracture at this time. Lumbar Spine MRI 08/12/18 16:43 CONCLUSION: 1. Findings consistent with diffuse osseous metastatic disease throughout the lumbar spine with involvement of the posterior processes at multiple levels. 2. There is paraspinal extension of tumor on the left at L5 which appears to extend to the neural foramina with abnormal enhancement of the left L5 nerve root. 3. Otherwise, no evidence for pathologic fracture or epidural tumor extension. Medications: Active Medications Generic Name Dose Route Start Last Admin Trade Name Freq PRN Reason Stop Dose Admin Acetaminophen 650 mg 08/13/18 08:16 08/13/18 16:26 Tylenol PO 650 mg Q6H PRN Administration headache/fever/pain1-4 Albuterol 1 ampul 08/13/18 01:00 08/13/18 13:12 Duoneb Neb (Kylah) NEB 1 ampul Q6HR ALT NEB KYLAH Administration Azithromycin 500 mg 08/13/18 09:00 08/13/18 12:08 Zithromax PO 500 mg DAILY KYLAH Administration Sodium Chloride 1,000 mls @ 65 mls/hr 08/12/18 01:00 08/13/18 12:10 Ns Inj IV.CONT Infused .[id number] KYLAH Infusion Sodium Chloride 1,000 mls @ 30 mls/hr 08/13/18 11:15 08/13/18 12:09 1/2 Normal Saline Inj IV.CONT 30 mls/hr .Q24H KYLAH Administration Insulin Aspart 0 unit 08/12/18 08:00 08/13/18 13:34 Novolog Insulin Correctional Sugar Inj SQ 3 unit ACHS KYLAH Administration Protocol Morphine Sulfate 2 mg 08/13/18 08:17 08/13/18 16:25 Morphine Inj IV.PUSH 2 mg Q4H PRN Administration BREAKTHROUGH PAIN Objective Remarks: GENERAL: Well-nourished, well-developed male patient. SKIN: Warm and dry. HEAD: Normocephalic. EYES: No scleral icterus. No injection or drainage. NECK: Supple, trachea midline. CARDIOVASCULAR: Regular rate and rhythm without murmurs. RESPIRATORY: Breath sounds equal bilaterally. No accessory muscle use. GASTROINTESTINAL: Abdomen soft, non-tender, nondistended. EXTREMITIES: No cyanosis, or edema. MUSCULOSKELETAL: Adequate muscle tone. NEUROLOGICAL: No obvious focal deficit. Awake, alert, and oriented x3. PSYCHIATRIC: Appropriate mood and affect; insight and judgment normal. Assessment/Plan - Plan Is a 73-year-old Irish-speaking gentleman with newly diagnosed lung cancer with spinal metastasis. Patient status post T10 bone biopsy. He is awaiting radiation oncology consultation. Pulmonology is following and plans for bronchoscopy with biopsies tomorrow. Recommendation: 1. Lung cancer with spinal metastasis, T10 bone biopsy pending. 2. Consult placed to radiation oncology. 3. Pulmonology plans for bronchoscopy with biopsies tomorrow. 4. Pain currently uncontrolled, will adjust accordingly. Monitor for oversedation. 5. Continue supportive care.
[2018-08-14] MEDS: Sod Chloride 0.9% Inj 1,000 ML IV.CONT SCH ×2 (00:47→19:17)
[2018-08-14] MEDS ORDERED: Metoprolol Tartrate 25 MG Tablet PO ONE (06:43)
[2018-08-14] MEDS ORDERED: Chlorhexidine Gluconate 2% 1 Pack (2 Cloths) TOPICAL ONE (06:43)
[2018-08-14] MEDS ORDERED: Sodium Chlor 0.9% Inj 500 ML IV.SIG SCH (07:00)
[2018-08-14] MEDS: Lisinopril 5 MG Tablet PO SCH (09:38)
[2018-08-14] MEDS: Azithromycin 250 MG Tablet PO SCH (09:38)
[2018-08-14] MEDS: Morphine Inj 4 MG/ML Vial IV.PUSH PRN (09:39)
[2018-08-14 09:59] LABS: Baso % (Auto) 0.3 % (0.0-2.0); Eos % (Auto) 0.5 % (0.0-4.0); Hematocrit 33.4 % (39.0-51.0); Hemoglobin 11.8 gm/dL (13.0-17.0); Lymph # (Auto) 0.4 th/mm3 (1.0-4.8); Lymph % (Auto) 11.4 % (9.0-44.0); Mean Corpuscular HGB Conc 35.4 % (32.0-36.0); Mean Corpuscular Volume 90.6 fL (80.0-100.0); Mean Platelet Volume 7.1 fL (7.0-11.0); Mono # (Auto) 0.3 th/mm3 (0.0-0.9); Mono % (Auto) 7.1 % (0.0-8.0); Neut % (Auto) 80.7 % (16.0-70.0); Platelet Count 163 th/mm3 (150-450); Red Blood Count 3.68 mil/mm3 (4.50-5.90); Red Cell Distribution Width 13.4 % (11.6-17.2); White Blood Count 3.7 th/mm3 (4.0-11.0)
[2018-08-14 10:26] LABS: Alanine Aminotransferase 14 U/L (12-78); Albumin 3.1 g/dL (3.4-5.0); Alkaline Phosphatase 117 U/L (45-117); Anion Gap 10 meq/L (5-15); Aspartate Aminotransferase 25 U/L (15-37); Blood Urea Nitrogen 14 mg/dL (7-18); Calcium 9.4 mg/dL (8.5-10.1); Carbon Dioxide 28.5 meq/L (21.0-32.0); Chloride 96 meq/L (98-107); Glomerular Filtration Rate 58 mL/min (>89); Glucose,Random 151 mg/dL (74-106); Potassium 4.1 meq/L (3.5-5.1); Sodium 134 meq/L (136-145)
[2018-08-14] MEDS ORDERED: fentaNYL Citrate Inj 100 MCG/2 ML Ampul IV.PUSH ONE (11:21)
[2018-08-14] MEDS ORDERED: Lidocaine PF 1% Inj 5 ML Syringe OTHER ONE (11:21)
[2018-08-14] MEDS ORDERED: Phenylephrine/NS 1000 MCG/10ML Syringe IV.PUSH ONE (11:21)
[2018-08-14] MEDS ORDERED: Sugammadex Inj 200 MG/2 ML Vial IV.PUSH ONE (11:21)
[2018-08-14] MEDS ORDERED: Succinylcholine Inj 100 MG/5 ML Syringe IV.PUSH ONE (11:21)
--- NOTE | 2018-08-14 12:26 | MP ---
cc: Cesia Huertas MD DATE OF OPERATION: 08/14/2018 PROCEDURE: Fiberoptic bronchoscopy with biopsies, brushings and washings. PREOPERATIVE DIAGNOSIS: Left upper lobe lung mass. POSTOPERATIVE DIAGNOSIS: Left upper lobe lung mass. ANESTHESIA: General. SURGEON: Cesia Huertas MD PROCEDURE AND FINDINGS: The patient was informed of the risks of bronchoscopy including bleeding, pneumothorax, respiratory failure and was brought into the bronchoscopy room and under general anesthesia, he was intubated. The Olympus IT 180 bronchoscope was used to visualize the bronchi. The scope was advanced through the endotracheal tube into the trachea. The trachea and kendal appeared normal. The scope was then advanced into the right mainstem and right upper lobe segmental bronchi. These bronchi demonstrated no gross endobronchial lesions. Next, the right middle lobe and lower lobe segmental bronchi were visualized. These bronchi demonstrated few mucoid secretions, but no endobronchial lesions were seen. The secretions were suctioned out. Saline washings were done. The underlying bronchi were normal. The scope was then advanced into the left mainstem and left upper lobe segmental bronchi. The left upper lobe anterior segmental bronchus showed mucosal irregularity with narrowing of the lumen, but no definite mass could be seen. Brushings were done from here for cytology and biopsies were done. Minimal bleeding was observed and controlled with cold saline and saline washings. The scope was then advanced into the left lower lobe segmental bronchi, which demonstrated no gross endobronchial lesions. There were a mucoid secretions. These were suctioned out. Saline lavage was carried out and the procedure was then terminated. The patient tolerated the procedure well. Cesia Huertas MD VJD/es , 11:52 AM , 11:59 AM
--- NOTE | 2018-08-14 12:49 | XR ---
EXAM DATE: 08/14/2018 12:40 PM EDT AGE/SEX: 73 years / Male INDICATIONS: Post bronchoscopy and biopsy. Pneumothorax. CLINICAL DATA: This is the patient's subsequent encounter. Patient reports that signs and symptoms h ave been present for 4 - 6 days and indicates a pain score of 0/10. MEDICAL/SURGICAL HISTORY: Hypertension. Diabetes mellitus type II. Carcinoma, colon. None. COMPARISON: [facility], CHEST 1V SINGLE AP, 08/11/2018. . FINDINGS: Mild prominence to the left hilum. There is no pneumothorax. Fracture of the right fourth rib age indeterminate. The heart and pulmonary vascularity are normal. CONCLUSION: Negative for pneumothorax Electronically signed by: Rodrigue Matos MD 08/14/2018 12:47 PM EDT
--- NOTE | 2018-08-14 13:31 | ECG ---
Date Performed: 08/13/2018 Time Performed: 23:13:58 PTAGE: 73 years EKG: Sinus rhythm Leftward axis Borderline ECG NO PREVIOUS TRACING DOCTOR: Carlos Vallejo Interpretating Date/Time 08/14/2018 13:28:56
--- NOTE | 2018-08-14 16:24 | P.PNONC ---
Subjective Interval history: T-max 100.6 F. Patient resting in bed with eyes closed, opens eyes to voice. Reports can continued pain in his low back. Discussed with RN, she is arranged a family meeting with his sons tomorrow to discuss biopsy results. Objective Vital Signs/Intake & Output: Vital Signs 08/13/18 17:30 08/13/18 20:00 08/13/18 20:08 Temperature 99.7 F H 98.7 F Pulse Rate 96 H 103 H 88 Respiratory Rate 18 16 Blood Pressure 147/87 H 136/73 Pulse Oximetry 97 97 08/13/18 21:39 08/14/18 00:00 08/14/18 00:29 Temperature 99.1 F Pulse Rate 93 H 87 83 Respiratory Rate 18 Blood Pressure 116/66 Pulse Oximetry 96 98 08/14/18 03:48 08/14/18 04:00 08/14/18 04:03 Temperature 98.8 F Pulse Rate 82 92 H 85 Respiratory Rate 16 16 Blood Pressure 130/73 Pulse Oximetry 97 08/14/18 08:00 08/14/18 09:22 08/14/18 12:04 Temperature 98.6 F 98.2 F Pulse Rate 90 69 95 H Respiratory Rate 18 20 15 Blood Pressure 121/75 111/62 Pulse Oximetry 97 100 08/14/18 12:15 08/14/18 12:30 08/14/18 12:45 Temperature Pulse Rate 88 94 H 98 H Respiratory Rate 17 16 15 Blood Pressure 105/61 103/57 L 112/60 Pulse Oximetry 98 98 98 08/14/18 13:00 08/14/18 13:15 08/14/18 13:30 Temperature 98.0 F 98.6 F Pulse Rate 98 H 92 H Respiratory Rate 15 15 18 Blood Pressure 117/65 97/56 L 104/60 Pulse Oximetry 98 98 Intake & Output 08/13/18 08/14/18 08/14/18 18:59 06:59 18:59 Intake Total 1480 / 1480 Balance 1480 / 1480 Weight 65.5 kg Intake: IV 1000 / 1000 NS Inj 1,000 ML @ 65 mls/hr IV. 1000 / 1000 CONT .[id number] REPLACED BY [facility] Rx#:[id number] Oral 480 / 480 Other: # Voids 3 Date of Last Bowel Movement 08/11/18 Result Diagrams: 08/14/18 08:50 08/14/18 08:50 Laboratory Results: Laboratory Results - last 24 hr 08/13/18 08/13/18 08/14/18 17:36 22:16 08:50 WBC 3.7 L RBC 3.68 L Hgb 11.8 L Hct 33.4 L MCV 90.6 MCH 32.0 MCHC 35.4 RDW 13.4 Plt Count 163 MPV 7.1 Neut % (Auto) 80.7 H Lymph % (Auto) 11.4 Baxter % (Auto) 7.1 Eos % (Auto) 0.5 Baso % (Auto) 0.3 Neut # (Auto) 3.0 Lymph # (Auto) 0.4 L Baxter # (Auto) 0.3 Eos # (Auto) 0.0 Baso # (Auto) 0.0 WBC Differential . Differential Comment Auto diff final Sodium Potassium Chloride Carbon Dioxide Anion Gap BUN Creatinine Estimated GFR POC Glucose 216 H 265 H Random Glucose Calcium Total Bilirubin AST ALT Alkaline Phosphatase Total Protein Albumin 08/14/18 08/14/18 08/14/18 08:50 10:02 13:55 WBC RBC Hgb Hct MCV MCH MCHC RDW Plt Count MPV Neut % (Auto) Lymph % (Auto) Baxter % (Auto) Eos % (Auto) Baso % (Auto) Neut # (Auto) Lymph # (Auto) Baxter # (Auto) Eos # (Auto) Baso # (Auto) WBC Differential Differential Comment Sodium 134 L Potassium 4.1 Chloride 96 L Carbon Dioxide 28.5 Anion Gap 10 BUN 14 Creatinine 1.23 Estimated GFR 58 L POC Glucose 182 H 182 H Random Glucose 151 H Calcium 9.4 D Total Bilirubin 0.6 AST 25 ALT 14 Alkaline Phosphatase 117 Total Protein 7.0 Albumin 3.1 L Culture Results: Microbiology 08/14/18 11:43 Fungal Smear - Final Bronchial Washings - Bronchial No fungal elements seen 08/14/18 11:43 Gram Stain - Final Bronchial - Bronchial Imaging Studies: Impressions Chest X-Ray 08/14/18 11:47 CONCLUSION: Negative for pneumothorax Medications: Active Medications Generic Name Dose Route Start Last Admin Trade Name Freq PRN Reason Stop Dose Admin Acetaminophen 650 mg 08/13/18 08:16 08/13/18 16:26 Tylenol PO 650 mg Q6H PRN Administration headache/fever/pain1-4 Hydrocodone Bitart/Acetaminophen 1 tab 08/13/18 08:17 08/13/18 22:43 [place] 7.5/325 PO 1 tab Q4H PRN Administration pain scale 8-10 Albuterol 1 ampul 08/13/18 01:00 08/14/18 09:22 Duoneb Neb (Kylah) NEB 1 ampul Q6HR ALT NEB KYLAH Administration Azithromycin 500 mg 08/13/18 09:00 08/14/18 09:38 Zithromax PO 500 mg DAILY KYLAH Administration Sodium Chloride 1,000 mls @ 65 mls/hr 08/12/18 01:00 08/14/18 00:47 Ns Inj IV.CONT Not Given .[id number] KYLAH Sodium Chloride 1,000 mls @ 30 mls/hr 08/13/18 11:15 08/13/18 12:09 1/2 Normal Saline Inj IV.CONT 30 mls/hr .Q24H KYLAH Administration Insulin Aspart 0 unit 08/12/18 08:00 08/13/18 22:29 Novolog Insulin Correctional Sugar Inj SQ 5 unit ACHS KYLAH Administration Protocol Lisinopril 2.5 mg 08/14/18 09:00 08/14/18 09:38 Prinivil PO 2.5 mg DAILY KYLAH Administration Morphine Sulfate 4 mg 08/13/18 17:45 08/14/18 09:39 Morphine Inj IV.PUSH 4 mg Q3H PRN Administration BREAKTHROUGH PAIN 6-10 Objective Remarks: GENERAL: Well-nourished, well-developed male patient. SKIN: Warm and dry. HEAD: Normocephalic. EYES: No scleral icterus. No injection or drainage. NECK: Supple, trachea midline. CARDIOVASCULAR: +S1/S2 without murmurs. RESPIRATORY: Breath sounds equal bilaterally. No accessory muscle use. GASTROINTESTINAL: Abdomen soft, non-tender, nondistended. EXTREMITIES: No cyanosis, or edema. MUSCULOSKELETAL: Adequate muscle tone. NEUROLOGICAL: No obvious focal deficit. Sleeping, awakens easily to voice. PSYCHIATRIC: Appropriate mood and affect; insight and judgment normal. Assessment/Plan - Plan Is a 73-year-old Swiss-speaking gentleman with newly diagnosed lung cancer with spinal metastasis. Patient status post T10 bone biopsy. He is awaiting radiation oncology consultation. Pulmonology is following and plans for bronchoscopy with biopsies tomorrow. Recommendation: 1. Biopsy of T10 revealed metastatic adenocarcinoma, consistent with lung primary. Family meeting arranged for tomorrow when the patient's sons can be present to discuss. 2. Radiation oncology following, per Dr. arana, plan for radiation simulation tomorrow and start radiation on Sunday. 3. Patient status post bronchoscopy today. 4. Patient appears more comfortable today, however still reports pain. We have started Decadron 4 mg every 6 hours. 5. Continue supportive care. - Attending Statement Pt sitting up in bed, wants to sit out. No evidence of cord compression. Pain better controlled. Case d/w Dr. Arana. XRT to spine to start 08/16 after simulation tomorrow. Case d/w hospitalist Dr. Wilson. Family deciding on taking back home after completion of XRT. Final recommendations and plans reg chemotherapy after obtaining pathology results from bronch bx including molecular markers. Will follow up.
--- NOTE | 2018-08-14 16:52 | P.PNIM ---
Subjective Interval history: Patient complains of lower back pain. He also has complaints of bilateral hip pain. Physical Exam Vital signs: Vital Signs 08/13/18 17:30 08/13/18 20:00 08/13/18 20:08 Temperature 99.7 F H 98.7 F Pulse Rate 96 H 103 H 88 Respiratory Rate 18 16 Blood Pressure 147/87 H 136/73 Pulse Oximetry 97 97 08/13/18 21:39 08/14/18 00:00 08/14/18 00:29 Temperature 99.1 F Pulse Rate 93 H 87 83 Respiratory Rate 18 Blood Pressure 116/66 Pulse Oximetry 96 98 08/14/18 03:48 08/14/18 04:00 08/14/18 04:03 Temperature 98.8 F Pulse Rate 82 92 H 85 Respiratory Rate 16 16 Blood Pressure 130/73 Pulse Oximetry 97 08/14/18 08:00 08/14/18 09:22 08/14/18 12:04 Temperature 98.6 F 98.2 F Pulse Rate 90 69 95 H Respiratory Rate 18 20 15 Blood Pressure 121/75 111/62 Pulse Oximetry 97 100 08/14/18 12:15 08/14/18 12:30 08/14/18 12:45 Temperature Pulse Rate 88 94 H 98 H Respiratory Rate 17 16 15 Blood Pressure 105/61 103/57 L 112/60 Pulse Oximetry 98 98 98 08/14/18 13:00 08/14/18 13:15 08/14/18 13:30 Temperature 98.0 F 98.6 F Pulse Rate 98 H 92 H Respiratory Rate 15 15 18 Blood Pressure 117/65 97/56 L 104/60 Pulse Oximetry 98 98 Intake & Output 08/13/18 08/14/18 08/14/18 18:59 06:59 18:59 Intake Total 1480 / 1480 Balance 1480 / 1480 Weight 65.5 kg Intake: IV 1000 / 1000 NS Inj 1,000 ML @ 65 mls/hr IV. 1000 / 1000 CONT .[id number] [facility] Rx#:[id number] Oral 480 / 480 Other: # Voids 3 Date of Last Bowel Movement 08/11/18 Narrative: General patient complains of lower back pain and bilateral hip pain which is tolerable with pain medications. HEENT extraocular movements are intact, clear oropharyngeal mucosa, no JVD Cardiovascular S1-S2 audible, RRR, no murmurs rubs or gallops Respiratory clear to auscultation bilaterally Abdomen soft, nontender, nondistended, normal bowel sounds Extremities no edema 2+ distal pulses in bilateral upper and lower extremities Neuro patient can move all 4 extremities. Sensation is intact bilaterally. Results - Labs CBC & Chem 7: 08/14/18 08:50 08/14/18 08:50 Laboratory Results - last 24 hr 08/13/18 08/13/18 08/14/18 17:36 22:16 08:50 WBC 3.7 L RBC 3.68 L Hgb 11.8 L Hct 33.4 L MCV 90.6 MCH 32.0 MCHC 35.4 RDW 13.4 Plt Count 163 MPV 7.1 Neut % (Auto) 80.7 H Lymph % (Auto) 11.4 Meagher % (Auto) 7.1 Eos % (Auto) 0.5 Baso % (Auto) 0.3 Neut # (Auto) 3.0 Lymph # (Auto) 0.4 L Meagher # (Auto) 0.3 Eos # (Auto) 0.0 Baso # (Auto) 0.0 WBC Differential . Differential Comment Auto diff final Sodium Potassium Chloride Carbon Dioxide Anion Gap BUN Creatinine Estimated GFR POC Glucose 216 H 265 H Random Glucose Calcium Total Bilirubin AST ALT Alkaline Phosphatase Total Protein Albumin 08/14/18 08/14/18 08/14/18 08:50 10:02 13:55 WBC RBC Hgb Hct MCV MCH MCHC RDW Plt Count MPV Neut % (Auto) Lymph % (Auto) Meagher % (Auto) Eos % (Auto) Baso % (Auto) Neut # (Auto) Lymph # (Auto) Meagher # (Auto) Eos # (Auto) Baso # (Auto) WBC Differential Differential Comment Sodium 134 L Potassium 4.1 Chloride 96 L Carbon Dioxide 28.5 Anion Gap 10 BUN 14 Creatinine 1.23 Estimated GFR 58 L POC Glucose 182 H 182 H Random Glucose 151 H Calcium 9.4 D Total Bilirubin 0.6 AST 25 ALT 14 Alkaline Phosphatase 117 Total Protein 7.0 Albumin 3.1 L Microbiology 08/14/18 11:43 Bronchial Washings - Bronchial Fungal Smear - Final No fungal elements seen 08/14/18 11:43 Bronchial - Bronchial Gram Stain - Final - Imaging Impressions Chest X-Ray 08/14/18 11:47 CONCLUSION: Negative for pneumothorax - Procedures 08/12/18 - Ct guided biopsy of a destructive lesion in the t10 transverse process by IR Dr. Matos Assessment and Plan - Assessment (1) Lung mass Code(s): R91.8 - Other nonspecific abnormal finding of lung field Status: Acute (2) Bone metastases Code(s): C79.51 - Secondary malignant neoplasm of bone Status: Acute - Plan Patient is a 73-year-old Cypriot-speaking male with a diagnosis of hypertension, diabetes mellitus type 2, adenocarcinoma of the lung with spinal metastasis. The patient presented with complaints of lower back pain, rib pain , shortness of breath, and occasional hemoptysis. 1. Adenocarcinoma of the lung with spinal metastasis 3.4 x 2.2 cm peak related lung mass was seen on chest imaging after the patient was admitted. Thoracic spine MRI shows widespread diffuse osseous metastatic disease involving the thoracic spine. The patient underwent T10 bone biopsy which revealed metastatic adenocarcinoma. [facility] oncology is following the patient. As per heme oncology note radiation oncology plan is for radiation simulation tomorrow and to start radiation on Sunday. Patient underwent bronchoscopy today. Pulmonology is following. Biopsies will be followed up. A discussion was held with the patient today regarding his condition in [place] by me, he requests that I discussed the case with his son who will arrive around 6:30 PM. He still has complaints of back pain, bilateral hip pain. Patient was started on Decadron today by Hem onc. Continue pain medications as needed. I will follow-up with heme oncology and radiation oncology, and pulmonary team for further recommendations regarding his care. 2. Hypertension Blood pressure currently under control. Continue current management. 3. Diabetes mellitus type 2 Continue low-dose insulin sliding scale. Patient will be started on heparin for DVT prophylaxis.
[2018-08-14] MEDS: Sodium Chloride 0.45 % Inj 1,000 ML IV.CONT SCH (17:28)
[2018-08-14] MEDS: Insulin NovoLOG Aspart Correctional Sugar Inj SQ SCH ×4 (17:38→21:24)
[2018-08-14] MEDS ORDERED: Heparin - SQ 10,000 UNITS/ML Vial SQ SCH (21:00)
[2018-08-15] MEDS: Lisinopril 5 MG Tablet PO SCH (09:22)
[2018-08-15] MEDS: Azithromycin 250 MG Tablet PO SCH (09:22)
[2018-08-15] MEDS: Insulin NovoLOG Aspart Correctional Sugar Inj SQ SCH ×4 (09:37→22:04)
--- NOTE | 2018-08-15 17:38 | P.PNIM ---
Subjective Interval history: Patient is laying down in bed. He still has complaints of lower back pain which is somewhat improved with pain medications. He does not have any specific questions for me today and no other complaints. Physical Exam Vital signs: Vital Signs 08/14/18 19:51 08/14/18 20:00 08/15/18 00:00 Temperature 98.6 F 97.7 F Pulse Rate 80 85 76 Respiratory Rate 16 20 18 Blood Pressure 115/73 108/66 Pulse Oximetry 96 96 98 08/15/18 03:14 08/15/18 03:46 08/15/18 04:21 Temperature 97.5 F L Pulse Rate 71 84 93 H Respiratory Rate 14 17 Blood Pressure 145/77 H Pulse Oximetry 99 08/15/18 08:00 08/15/18 09:07 08/15/18 15:08 Temperature 98 F Pulse Rate 95 H 86 88 Respiratory Rate 18 18 18 Blood Pressure 124/66 Pulse Oximetry 97 98 08/15/18 16:00 Temperature 98.6 F Pulse Rate 92 H Respiratory Rate 18 Blood Pressure 129/77 Pulse Oximetry 97 Intake & Output 08/14/18 08/15/18 08/15/18 18:59 06:59 18:59 Intake Total 1360 / 1360 Balance 1360 / 1360 Weight 65.4 kg Intake: IV 1000 / 1000 1/2 Normal Saline Inj 1,000 ML 1000 / 1000 @ 30 mls/hr IV.CONT .Q24H [facility] Rx#:[id number] Oral 360 / 360 Other: # Voids 4 2 Date of Last Bowel Movement 08/11/18 Narrative: General patient complains of lower back pain and bilateral hip pain which is tolerable with pain medications. HEENT extraocular movements are intact, clear oropharyngeal mucosa, no JVD Cardiovascular S1-S2 audible, RRR, no murmurs rubs or gallops Respiratory clear to auscultation bilaterally Abdomen soft, nontender, nondistended, normal bowel sounds Extremities no edema 2+ distal pulses in bilateral upper and lower extremities Neuro patient can move all 4 extremities. Sensation is intact bilaterally. Results - Labs CBC & Chem 7: 08/14/18 08:50 08/14/18 08:50 Laboratory Results - last 24 hr 08/14/18 08/14/18 08/15/18 17:23 21:19 09:15 POC Glucose 197 H 253 H 301 H Microbiology 08/14/18 11:43 Bronchial Washings - Bronchial Acid Fast Bacilli Smear - Final No acid fast bacilli seen 08/14/18 11:43 Bronchial - Bronchial Gram Stain - Final 08/14/18 11:43 Bronchial - Bronchial Bronchial Culture - Preliminary Immature growth - reincubate 08/14/18 11:43 Bronchial Washings - Bronchial Fungal Smear - Final No fungal elements seen - Procedures 08/12/18 - Ct guided biopsy of a destructive lesion in the t10 transverse process by IR Dr. 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 The patient presented with complaints of lower back pain, rib pain , shortness of breath, and occasional hemoptysis. 1. Adenocarcinoma of the lung with spinal metastasis 3.4 x 2.2 cm peak related lung mass was seen on chest imaging after the patient was admitted. Thoracic spine MRI shows widespread diffuse osseous metastatic disease involving the thoracic spine. The patient underwent T10 bone biopsy which revealed metastatic adenocarcinoma. [facility] oncology is following the patient. As per heme oncology note radiation oncology plan is for radiation simulation today and to start radiation on Sunday. Patient underwent bronchoscopy today. Pulmonology is following. Biopsies will be followed up. Patient started on steroids by heme oncology. I discussed the case with the patient and his family including his son at bedside last night. They would like to speak to the heme oncologist regarding the patient's prognosis and goals of treatment. I will follow up with recommendations from heme oncology. 2. Hypertension Blood pressure currently under control. Continue current management. 3. Diabetes mellitus type 2 Continue low-dose insulin sliding scale. Patient will be started on heparin for DVT prophylaxis.
[2018-08-15] MEDS: Sod Chloride 0.9% Inj 1,000 ML IV.CONT SCH (17:49)
--- NOTE | 2018-08-15 18:40 | P.PN ---
Subjective Interval history: He is not SOB at rest. Off O2. Bronchoscopy results pending. C/O Back pain as before. Physical Exam Vital signs: Vital Signs 08/14/18 19:51 08/14/18 20:00 08/15/18 00:00 Temperature 98.6 F 97.7 F Pulse Rate 80 85 76 Respiratory Rate 16 20 18 Blood Pressure 115/73 108/66 Pulse Oximetry 96 96 98 08/15/18 03:14 08/15/18 03:46 08/15/18 04:21 Temperature 97.5 F L Pulse Rate 71 84 93 H Respiratory Rate 14 17 Blood Pressure 145/77 H Pulse Oximetry 99 08/15/18 08:00 08/15/18 09:07 08/15/18 15:08 Temperature 98 F Pulse Rate 95 H 86 88 Respiratory Rate 18 18 18 Blood Pressure 124/66 Pulse Oximetry 97 98 08/15/18 16:00 Temperature 98.6 F Pulse Rate 92 H Respiratory Rate 18 Blood Pressure 129/77 Pulse Oximetry 97 Intake & Output 08/14/18 08/15/18 08/15/18 18:59 06:59 18:59 Intake Total 1360 / 1360 800 / 800 Balance 1360 / 1360 800 / 800 Weight 65.4 kg Intake: IV 1000 / 1000 800 / 800 NS Inj 1,000 ML @ 65 mls/hr IV. 800 / 800 CONT .[id number] [facility] Rx#:[id number] 1/2 Normal Saline Inj 1,000 ML 1000 / 1000 @ 30 mls/hr IV.CONT .Q24H [facility] Rx#:[id number] Oral 360 / 360 Other: # Voids 4 2 Date of Last Bowel Movement 08/11/18 Narrative: General: Elderly patient alert and in pain. HEENT PERRL, clear oropharyngeal mucosa, no JVD Cardiovascular S1-S2 audible, RRR, no murmurs rubs or gallops Respiratory clear to auscultation bilaterally Abdomen soft, nontender, nondistended, normal bowel sounds Extremities no edema 2+ distal pulses in bilateral upper and lower extremities Neuro patient can move all 4 extremities. Sensation is intact bilaterally. Results - Labs CBC & Chem 7: 08/14/18 08:50 08/14/18 08:50 Laboratory Results - last 24 hr 08/14/18 08/15/18 08/15/18 21:19 09:15 17:23 POC Glucose 253 H 301 H 317 H Microbiology 08/14/18 11:43 Bronchial Washings - Bronchial Acid Fast Bacilli Smear - Final No acid fast bacilli seen 08/14/18 11:43 Bronchial - Bronchial Gram Stain - Final 08/14/18 11:43 Bronchial - Bronchial Bronchial Culture - Preliminary Immature growth - reincubate 08/14/18 11:43 Bronchial Washings - Bronchial Fungal Smear - Final No fungal elements seen - Procedures 08/12/18 - Ct guided biopsy of a destructive lesion in the t10 transverse process by IR Dr. Matos Assessment and Plan - Assessment (1) COPD (chronic obstructive pulmonary disease) Code(s): J44.9 - Chronic obstructive pulmonary disease, unspecified Status: Acute (2) Hypertension Code(s): I10 - Essential (primary) hypertension Status: Acute (3) Lung mass Code(s): R91.8 - Other nonspecific abnormal finding of lung field Status: Acute (4) Bone metastases Code(s): C79.51 - Secondary malignant neoplasm of bone Status: Acute - Plan 1. Continue Zithromax 500 mg Daily x 2 2. Duoneb nebs qid. 3. O2 2 L PRN 4. Norco5/325 mg qid prn 5.Oncology evaluation
[2018-08-15] MEDS: Sodium Chloride 0.45 % Inj 1,000 ML IV.CONT SCH (19:51)
[2018-08-15] MEDS: Heparin - SQ 10,000 UNITS/ML Vial SQ SCH (21:33)
[2018-08-16 08:09] LABS: Calcium 8.2 mg/dL (8.5-10.1); Carbon Dioxide 26.1 meq/L (21.0-32.0); Magnesium 2.1 mg/dL (1.5-2.5); Potassium 4.4 meq/L (3.5-5.1)
[2018-08-16] MEDS: Morphine Inj 4 MG/ML Vial IV.PUSH PRN ×2 (09:46→21:08)
[2018-08-16] MEDS: Insulin NovoLOG Aspart Correctional Sugar Inj SQ SCH ×4 (09:50→21:04)
[2018-08-16] MEDS: Sod Chloride 0.9% Inj 1,000 ML IV.CONT SCH ×2 (11:20→19:18)
[2018-08-16] MEDS: Azithromycin 250 MG Tablet PO SCH (11:21)
[2018-08-16] MEDS: Heparin - SQ 10,000 UNITS/ML Vial SQ SCH ×2 (11:21→21:04)
[2018-08-16] MEDS: Lisinopril 5 MG Tablet PO SCH (11:21)
--- NOTE | 2018-08-16 20:07 | P.PN ---
Subjective Interval history: Will start radiation therapy to spine. Cytology on bronch is pending. C/O back pains Physical Exam Vital signs: Vital Signs 08/16/18 00:00 08/16/18 04:00 08/16/18 05:15 Temperature 97.6 F 97.7 F Pulse Rate 83 77 78 Respiratory Rate 16 16 Blood Pressure 110/67 119/70 Pulse Oximetry 98 97 08/16/18 08:01 08/16/18 12:00 08/16/18 16:00 Temperature 98.2 F 98 F Pulse Rate 77 84 85 Respiratory Rate 16 18 18 Blood Pressure 135/78 140/85 Pulse Oximetry 98 97 98 Intake & Output 08/16/18 08/16/18 08/17/18 06:59 18:59 06:59 Intake Total 480 / 480 1000 / 1000 Output Total 350 / 350 Balance 130 / 130 1000 / 1000 Weight 61.5 kg Intake: IV 1000 / 1000 NS Inj 1,000 ML @ 65 mls/hr IV. 1000 / 1000 CONT .[id number] [facility] Rx#:[id number] Oral 480 / 480 Output: Urine 350 / 350 Other: # Voids 3 Date of Last Bowel Movement 08/11/18 Narrative: General: Elderly patient alert and in pain. HEENT PERRL, clear oropharyngeal mucosa, no JVD Cardiovascular S1-S2 audible, RRR, no murmurs rubs or gallops Respiratory clear to auscultation bilaterally. Abdomen soft, nontender, nondistended, normal bowel sounds Extremities :no edema 2+ distal pulses in bilateral upper and lower extremities Neuro patient can move all 4 extremities. Results - Labs CBC & Chem 7: 08/14/18 08:50 08/16/18 06:58 Laboratory Results - last 24 hr 08/15/18 08/16/18 08/16/18 21:58 06:58 08:45 Sodium 134 L Potassium 4.4 Chloride 101 Carbon Dioxide 26.1 Anion Gap 7 BUN 22 H Creatinine 1.10 Estimated GFR 66 L POC Glucose 312 H 295 H Random Glucose 242 H Calcium 8.2 L D Magnesium 2.1 08/16/18 16:41 Sodium Potassium Chloride Carbon Dioxide Anion Gap BUN Creatinine Estimated GFR POC Glucose 205 H Random Glucose Calcium Magnesium Microbiology 08/14/18 11:43 Bronchial - Bronchial Gram Stain - Final 08/14/18 11:43 Bronchial - Bronchial Bronchial Culture - Final Rare growth normal respiratory luis fernando - Procedures 08/12/18 - Ct guided biopsy of a destructive lesion in the t10 transverse process by IR Dr. Matos Assessment and Plan - Assessment (1) COPD (chronic obstructive pulmonary disease) Code(s): J44.9 - Chronic obstructive pulmonary disease, unspecified Status: Acute (2) Hypertension Code(s): I10 - Essential (primary) hypertension Status: Acute (3) Lung mass Code(s): R91.8 - Other nonspecific abnormal finding of lung field Status: Acute (4) Bone metastases Code(s): C79.51 - Secondary malignant neoplasm of bone Status: Acute - Plan 1. Labs on Sunday 2.D/c Duoneb nebs . 3. D/C O2 4. Norco5/325 mg qid prn 5.Radiation therapy as planned 6. Ventolin HFA , 2 puffs TID PRN
--- NOTE | 2018-08-16 20:28 | P.PNIM ---
Subjective Interval history: Patient still has back pain, however improved slightly since yesterday. He does not have any other complaints. Physical Exam Vital signs: Vital Signs 08/16/18 00:00 08/16/18 04:00 08/16/18 05:15 Temperature 97.6 F 97.7 F Pulse Rate 83 77 78 Respiratory Rate 16 16 Blood Pressure 110/67 119/70 Pulse Oximetry 98 97 08/16/18 08:01 08/16/18 12:00 08/16/18 16:00 Temperature 98.2 F 98 F Pulse Rate 77 84 85 Respiratory Rate 16 18 18 Blood Pressure 135/78 140/85 Pulse Oximetry 98 97 98 Intake & Output 08/16/18 08/16/18 08/17/18 06:59 18:59 06:59 Intake Total 480 / 480 1000 / 1000 720 / 720 Output Total 350 / 350 Balance 130 / 130 1000 / 1000 720 / 720 Weight 61.5 kg Intake: IV 1000 / 1000 NS Inj 1,000 ML @ 65 mls/hr IV. 1000 / 1000 CONT .[id number] [facility] Rx#:[id number] Oral 480 / 480 720 / 720 Output: Urine 350 / 350 Other: # Voids 3 Date of Last Bowel Movement 08/11/18 08/11/18 08/11/18 Narrative: General patient complains of lower back pain and bilateral hip pain which is tolerable with pain medications, patient says he feels slightly better since yesterday. HEENT extraocular movements are intact, clear oropharyngeal mucosa, no JVD Cardiovascular S1-S2 audible, RRR, no murmurs rubs or gallops Respiratory clear to auscultation bilaterally Abdomen soft, nontender, nondistended, normal bowel sounds Extremities no edema 2+ distal pulses in bilateral upper and lower extremities Neuro patient can move all 4 extremities. Sensation is intact bilaterally. Results - Labs CBC & Chem 7: 08/14/18 08:50 08/16/18 06:58 Laboratory Results - last 24 hr 08/15/18 08/16/18 08/16/18 21:58 06:58 08:45 Sodium 134 L Potassium 4.4 Chloride 101 Carbon Dioxide 26.1 Anion Gap 7 BUN 22 H Creatinine 1.10 Estimated GFR 66 L POC Glucose 312 H 295 H Random Glucose 242 H Calcium 8.2 L D Magnesium 2.1 08/16/18 16:41 Sodium Potassium Chloride Carbon Dioxide Anion Gap BUN Creatinine Estimated GFR POC Glucose 205 H Random Glucose Calcium Magnesium Microbiology 08/14/18 11:43 Bronchial - Bronchial Gram Stain - Final 08/14/18 11:43 Bronchial - Bronchial Bronchial Culture - Final Rare growth normal respiratory luis fernando - Procedures 08/12/18 - Ct guided biopsy of a destructive lesion in the t10 transverse process by IR Dr. 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 The patient presented with complaints of lower back pain, rib pain , shortness of breath, and occasional hemoptysis. 1. 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 He thinks that the steroids are helping his pain. Plan is to continue pain medications as needed. Patient underwent radiation today. I will follow-up with recognitions from heme oncology. If the patient's symptoms have improved by tomorrow he will likely be discharged. He will then follow-up outpatient with heme oncology for further treatment planning. I will discuss the case with heme oncology. 2. Hypertension Blood pressure currently under control. Continue current management. 3. Diabetes mellitus type 2 Continue low-dose insulin sliding scale. Patient will be started on heparin for DVT prophylaxis.
[2018-08-17] MEDS: Insulin NovoLOG Aspart Correctional Sugar Inj SQ SCH (08:55)
[2018-08-17] MEDS: Lisinopril 5 MG Tablet PO SCH (08:55)
[2018-08-17] MEDS: Heparin - SQ 10,000 UNITS/ML Vial SQ SCH (08:56)
--- NOTE | 2018-08-17 10:55 | P.DS ---
Date of admission: 08/12/18 15:45 Primary care physician: UNKNOWN Brief History from admission: This patient is a 73-year-old Lao-speaking male with a diagnosis of diabetes mellitus type 2, hypertension. The patient presented to the emergency department with complaints of worsening dyspnea on exertion, fatigue, bilateral hip and lower back pain. He was evaluated in the emergency department and a CTA of the chest was done as initially there was a concern for pulmonary embolism. No PE was found however imaging did show a 3.4 x 2.2 cm spiculated lung mass anterior to the left hilum. There was also findings consistent with widespread bony metastatic disease. DS: Diagnosis - Discharge Diagnosis (1) Lung mass Status: Acute (2) Bone metastases Status: Acute DS: Medications - Discharge Medications Prescriptions: dexamethasone 4 mg PO TID #21 tab hydrocodone-acetaminophen 1 tab PO Q4H PRN #18 tab PRN Reason: pain scale 8-10 DS: Summary Hospital Course: 1. 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 This patient is a 73-year-old [place]o-speaking male with a diagnosis of diabetes mellitus type 2, hypertension. The patient presented to the emergency department with complaints of worsening dyspnea on exertion, fatigue, bilateral hip and lower back pain. He was evaluated in the emergency department and a CTA of the chest was done as initially there was a concern for pulmonary embolism. No PE was found however imaging did show a 3.4 x 2.2 cm spiculated lung mass anterior to the left hilum. There was also findings consistent with widespread bony metastatic disease. Heme oncology was consulted. He subsequently underwent T10 bone biopsy which revealed metastatic adenocarcinoma. Pulmonology was also consulted and the patient underwent bronchoscopy with biopsies which also show adenocarcinoma. Patient was given IV and p.o. pain medication. Was also started on steroids for pain control. Radiation therapy was started while in house. His pain has improved significantly. He has been given a schedule for radiation that will be continued on August 19 in the a.m. These directions were given to the patient and he will follow-up on Sunday. He will also follow-up outpatient with heme oncology in the clinic next week. He was given a prescription for p.o. [place], Eforcse was checked. He will also be given steroids on discharge as per heme oncology recommendations until he has been seen by oncology and oncology clinic. Physical therapy evaluated the patient and recommends discharging him with a front wheel walker. Patient will be discharged home today. Albuterol inhaler will be given on discharge as per pulmonary recommendations. 2. Hypertension Continue home medications for blood pressure control 3. Diabetes mellitus type 2 Patient can continue his home medications for diabetes mellitus type 2. He should follow-up with his primary care doctor and his diabetes medication can be adjusted if needed. - Time Spent with Patient Total time spent providing and/or coordinating discharge services: Greater than 30 minutes - Quality: VTE Deep Vein Thrombosis/Pulmonary Embolism Present on Admission: No Exam Vital signs: Vital Signs 08/16/18 12:00 08/16/18 16:00 08/16/18 20:00 Temperature 98.2 F 98 F 98.1 F Pulse Rate 84 85 85 Respiratory Rate 18 18 16 Blood Pressure 135/78 140/85 142/84 H Pulse Oximetry 97 98 81 L 08/16/18 20:02 08/16/18 23:47 08/17/18 00:05 Temperature 95.5 F L Pulse Rate 80 94 H 90 Respiratory Rate 14 Blood Pressure 133/94 H Pulse Oximetry 97 08/17/18 04:00 08/17/18 04:33 08/17/18 08:00 Temperature 98.0 F 97.9 F Pulse Rate 86 80 80 Respiratory Rate 16 18 Blood Pressure 145/93 H 156/90 H Pulse Oximetry 99 97 Intake & Output 08/16/18 08/17/18 08/17/18 18:59 06:59 18:59 Intake Total 1000 / 1000 960 / 960 Balance 1000 / 1000 960 / 960 Weight 61 kg Intake: IV 1000 / 1000 NS Inj 1,000 ML @ 65 mls/hr IV. 1000 / 1000 CONT .[id number] [facility] Rx#:[id number] Oral 960 / 960 Other: # Voids 2 Date of Last Bowel Movement 08/11/18 08/11/18 08/17/18 Narrative: General patient in no acute distress, patient's pain is better controlled. HEENT extraocular movements are intact, clear oropharyngeal mucosa, no JVD Cardiovascular S1-S2 audible, RRR, no murmurs rubs or gallops Respiratory clear to auscultation bilaterally Abdomen soft, nontender, nondistended, normal bowel sounds Extremities no edema 2+ distal pulses in bilateral upper and lower extremities Neuro cranial nerves II through XII intact Results Procedures completed during hospitalization: 08/12/18 - Ct guided biopsy of a destructive lesion in the t10 transverse process by IR Dr. Matos Labs on day of discharge: Labs from last 24 hours 08/17/18 08/16/18 08/16/18 07:45 21:00 16:41 POC Glucose 199 H 300 H 205 H - Impressions ITS Impressions Bone Biopsy CT 08/12/18 00:00 CONCLUSION: 1. Uncomplicated CT guided biopsy. Thoracic Spine MRI 08/12/18 00:00 CONCLUSION: 1. Widespread diffuse osseous metastatic disease involving the thoracic spine with near complete replacement of T5 and T8 vertebral bodies and involvement of the posterior processes at numerous levels. 2. There is eccentric bulging of the right T5 posterior cortex with effacement of the anterior thecal sac and flattening of the thoracic cord at this level. 3. Otherwise, no pathologic fracture at this time. Lumbar Spine MRI 08/12/18 16:43 CONCLUSION: 1. Findings consistent with diffuse osseous metastatic disease throughout the lumbar spine with involvement of the posterior processes at multiple levels. 2. There is paraspinal extension of tumor on the left at L5 which appears to extend to the neural foramina with abnormal enhancement of the left L5 nerve root. 3. Otherwise, no evidence for pathologic fracture or epidural tumor extension. Chest X-Ray 08/14/18 11:47 CONCLUSION: Negative for pneumothorax Discharge Plan - Discharge Disposition Patient Disposition: 01 Discharge Home - Discharge Condition Condition: Stable - Discharge Order Discharge Orders: Discharge Order (Routine); Ordered 08/17/18 Ordered By: Teresa Wilson - Physicians Team Primary Care Provider: UNKNOWN, Attending Provider: Teresa Wilson Other Providers: Oni Simons MD ; Sohail Uriostegui MD ; Gonzalo Lopez MD - Rxs /Orders / Referrals /Forms Prescriptions: New dexamethasone 4 mg Tablet 4 mg PO TID Qty: 21 RF: 0 hydrocodone-acetaminophen 7.5-325 mg Tablet 1 tab PO Q4H PRN (Reason: pain scale 8-10) Qty: 18 RF: 0 Continue Azopt drops 1 drop EACH EYE BID glipizide [Glucotrol] 5 mg Tablet 5 mg PO BID lisinopril 2.5 mg Tablet 2.5 mg PO DAILY Lumigan bottle 1 drop EACH EYE HS Ambulatory Orders / Order Sets / DME: Walker With Front Wheels (1 each) (Routine) Location: Determined by Patient Ordered By: Brittany Denney Referrals: UNKNOWN, [Primary Care Provider] - See Instructions - Discharge Instructions Patient Printed Instructions: Meal Planning with Diabetes Exchanges (DC), Shortness of Breath (DC) Additional Instructions: Follow-up with heme oncology in 1 week. The patient was given a scheduled appointment. He also continue radiation therapy on Sunday, August 19 in our oncology clinic. Use a front wheel walker when ambulating.
== END 2018-08-17 12:18 | disposition home health service (06) ==
LOC: NEPHCDU 18:34 → NEDDLT 18:34 → HCIN 08-13 17:40
PROVIDERS: ADMIT Hospitalist; ATTEND Hospitalist